=== PATIENT | female | born 1935 | race Caucasian/White ===

== ENCOUNTER 2019-02-04 09:34 | Emergency (ER) | payer MEDICARE, BC ==
[2019-02-04 09:47] VITALS: BP 118/71
--- NOTE | 2019-02-04 10:07 | UC ---
Respiratory Complaint HPI - HPI Summary HPI Summary: 83-year-old woman comes in with a chief complaint of cough and chest congestion and rhinorrhea for 5 days. Symptoms remind her when she had pneumonia before. Tells me that azithromycin doesn't work she took a different antibiotic twice a day for 7 days and did work. No wheezing no history of COPD or asthma. No pedal edema. No recent fevers. She does have some rhinorrhea. She has been drinking tea which does help with symptoms some. - History of Current Complaint Chief Complaint: UCRespiratory Stated Complaint: URI Time Seen by Provider: 02/04/19 09:59 Pain Intensity: 8 - Allergies/Home Medications Allergies/Adverse Reactions: Allergies Allergy/AdvReac Type Severity Reaction Status Date / Time meperidine [From Demerol] Allergy Rash Verified 02/04/19 09:48 Home Medications: Home Medications Atorvastatin* [Lipitor*] 10 mg PO 1700 02/04/19 [History Confirmed 02/04/19] Levothyroxine TAB* [Synthroid TAB*] 75 mcg PO EVERY OTHER DAY 02/04/19 [History Confirmed 02/04/19] Levothyroxine TAB* [Synthroid TAB*] 100 mcg PO EVERY OTHER DAY 02/04/19 [ History Confirmed 02/04/19] Losartan TAB* [Cozaar TAB*] 25 mg PO DAILY 02/04/19 [History Confirmed 02/04/19] Metoprolol Tartrate TAB* [Lopressor TAB*] 12.5 mg PO BID 02/04/19 [History Confirmed 02/04/19] Omeprazole 20 mg PO BID 02/04/19 [History Confirmed 02/04/19] Oxybutynin Chloride [Oxybutynin Chloride ER] 500 mg PO DAILY WITH MEAL 02/04/19 [History Confirmed 02/04/19] Primidone TAB(*) [Mysoline TAB(*)] 25 mg PO BEDTIME 02/04/19 [History Confirmed 02/04/19] Spironolactone 25 mg PO DAILY WITH MEAL 02/04/19 [History Confirmed 02/04/19] PMH/Surg Hx/FS Hx/Imm Hx Previously Healthy: Yes Endocrine History: Hypothyroidism, Dyslipidemia Cardiovascular History: Hypertension GI/ History: Gastroesophageal Reflux - Surgical History Surgical History: Yes Surgery Procedure, Year, and Place: hip and back surgery - Family History Known Family History: Positive: Non-Contributory - Social History Alcohol Use: None Substance Use Type: None Smoking Status (MU): Never Smoked Tobacco Review of Systems All Other Systems Reviewed And Are Negative: Yes Constitutional: Positive: Negative Skin: Positive: Negative Eyes: Positive: Negative ENT: Positive: Nasal Discharge, Sinus Congestion Respiratory: Positive: Cough, Other - SEE HPI Cardiovascular: Positive: Negative Gastrointestinal: Positive: Negative Motor: Positive: Negative Neurovascular: Positive: Negative Musculoskeletal: Positive: Negative. Negative: Calf Tenderness, Edema Neurological: Positive: Negative Psychological: Positive: Negative Is Patient Immunocompromised?: No Physical Exam Triage Information Reviewed: Yes Appearance: No Pain Distress, Well-Nourished, Ill-Appearing - MILD Vital Signs: Initial Vital Signs Temp 98.5 F 02/04/19 09:43 Pulse 110 02/04/19 09:43 Resp 20 02/04/19 09:43 BP 118/71 02/04/19 09:43 Pulse Ox 100 02/04/19 09:43 Vital Signs Reviewed: Yes Eye Exam: Normal Eyes: Positive: Conjunctiva Clear ENT: Positive: Pharynx normal, Nasal congestion, TMs normal Neck: Positive: Supple Respiratory: Positive: No respiratory distress, Rhonchi - MILD Cardiovascular: Positive: RRR Musculoskeletal: Positive: Strength Intact, ROM Intact, No Edema - NO CALF TENDERNESS Neurological: Positive: Alert Psychological: Positive: Age Appropriate Behavior Skin Exam: Normal Respiratory Course/Dx - Course Course Of Treatment: DISCUSSED VIRAL VERSES BACTERIAL INFECTION AND THE ROLE OF ANTIBIOTICS. THE PATIENT PREFERS TO BE ON ANTIBIOTICS AT THIS TIME. - Differential Dx/Diagnosis Provider Diagnosis: Bronchitis Discharge - Sign-Out/Discharge Documenting (check all that apply): Patient Departure All imaging exams completed and their final reports reviewed: No Studies - Discharge Plan Condition: Stable Disposition: HOME Prescriptions: DOXYcycline CAP(*) [DOXYcycline 100MG CAP(*)] 100 mg PO BID #14 cap Patient Education Materials: Acute Bronchitis (ED) Referrals: [facility] [place] [facility] REFERRAL [Outside] Additional Instructions: FOLLOW UP WITH YOUR DOCTOR IF NOT COMPLETELY IMPROVED. GET RECHECKED SOONER IF YOUR CONDITION WORSENS OR ANY QUESTIONS OR CONCERNS. - Billing Disposition and Condition Condition: STABLE Disposition: Home
== END 2019-02-04 10:14 | disposition home or self-care (01) ==
LOC: UCEAST 09:34
DX: J40 Bronchitis, not specified as acute or chronic (principal); E03.9 Hypothyroidism, unspecified; E78.5 Hyperlipidemia, unspecified; I10 Essential (primary) hypertension; K21.9 Gastro-esophageal reflux disease without esophagitis
CPT/HCPCS: 99202; G0463